=== PATIENT | male | born 1950 | race Caucasian/White ===

== ENCOUNTER 2017-01-25 06:43 | Day surgery (SDC) | payer BC, OTHER ==
[2017-01-25] MEDS ORDERED: NALOXONE HCL 0.4 MG/ML INJ ONE (07:42)
[2017-01-25] MEDS ORDERED: ONDANSETRON 4 MG/2 ML VIAL ONE (07:42)
[2017-01-25] MEDS ORDERED: FLUMAZENIL 0.5 MG/5 ML MDV IVP ONE (07:42)
[2017-01-25] MEDS ORDERED: MIDAZOLAM 2 MG/2 ML VIAL ONE (07:43)
[2017-01-25] MEDS ORDERED: fentaNYL 100 MCG/2 ML INJ ONE (07:43)
[2017-01-25 08:12] LABS: HEMATOCRIT 47.5 % (40.0-51.0); HEMOGLOBIN 16.1 g/dL (13.7-17.5)
[2017-01-25 08:23] LABS: INR 1.03 (0.83-1.16); PROTIME(PATIENT) 13.4 SEC (12.0-15.0)
[2017-01-25 08:24] LABS: APTT 30.7 SEC (23.0-38.0)
[2017-01-25] MEDS ORDERED: ONDANSETRON 4 MG/2 ML VIAL IVP PRN (10:07)
[2017-01-25] MEDS ORDERED: ACETAMINOPHEN 325 MG TAB PO PRN (10:07)
== END 2017-01-25 11:42 | disposition home or self-care (01) ==
LOC: FIMAGING 06:43
PROC: 07BB3ZX Excision of Mesenteric Lymphatic, Percutaneous Approach, Diagnostic (ICD-10-PCS; principal; 2017-01-25 09:45)
DX: C85.13 Unspecified B-cell lymphoma, intra-abdominal lymph nodes (principal); Z85.46 Personal history of malignant neoplasm of prostate; Z79.82 Long term (current) use of aspirin
CPT/HCPCS: J2250; J2310; J2405; J3010